=== PATIENT | female | born 1970 | race Caucasian/White ===

== ENCOUNTER 2017-08-17 23:16 | Emergency (ER) | payer SELFPAY ==
[~2017-08-17] VITALS: Ht 152.4 cm; Wt 70.0 kg
[2017-08-17 23:53] VITALS: BP 149/76
== END 2017-08-18 02:08 | disposition left against medical advice (07) ==
LOC: ER 08-18 00:25
DX: R51 Headache (principal); Z53.21 Procedure and treatment not carried out due to patient leaving prior to being seen by health care provider